=== PATIENT | male | born 1970 | race Caucasian/White ===

== ENCOUNTER 2020-05-14 00:06 | Inpatient (IN) | payer MEDICAID, OTHER ==
[~2020-05-14] VITALS: Ht 167.6 cm; Wt 97.3 kg
[2020-05-14] MEDS ORDERED: MORPHINE SULFATE 4 MG/ML SYR/VIAL ONE (00:22)
[2020-05-14] MEDS ORDERED: MORPHINE SULFATE 4 MG/ML SYR/VIAL IV ONE (00:30)
[2020-05-14 00:41] LABS: Basophils # (auto) 0.1 10 ^3/uL (0-0.2); Basophils % (auto) 0.4 % (0.0-2.0); Eosinophils # (auto) 0 10 ^3/uL (0-0.8); Eosinophils % (auto) 0.1 % (0.0-7.0); Hematocrit 35.8 % (41.0-53.0); Hemoglobin 12.3 g/dL (13.5-17.5); Lymphocytes % (auto) 11.9 % (10.0-50.0); Mean Corpuscular Hemoglobin 31.6 pg (28.0-32.0); Mean Corpuscular Hgb Conc. 34.3 g/dL (32.0-36.0); Monocytes % (auto) 11.9 % (0.0-12.0); Neutrophils # (auto) 12.5 10 ^3/uL (1.6-8.6); Neutrophils % (auto) 75.7 % (37.0-80.0); Platelet Count (auto) 317 10^3/uL (140-450); Red Blood Cells 3.89 10^6/uL (4.5-5.90); Red Cell Distribution Width 12.6 % (11.8-14.3); White Blood Cell 16.6 10^3/uL (4.4-10.8)
[2020-05-14 00:58] LABS: INR 1.07 (0.9-1.15); Partial Thromboplastin Time 29.6 sec (23.0-31.2)
[2020-05-14 01:00] LABS: Albumin 2.9 g/dL (3.4-5.0); Calcium 8.5 mg/dL (8.5-10.1); Potassium 3.9 mmol/L (3.5-5.1)
[2020-05-14 01:07] LABS: BUN/Creatinine Ratio 9.9; Bilirubin, Total 1.3 mg/dL (0.2-1.0); Total Protein 7.3 g/dL (6.4-8.2)
[2020-05-14] MEDS ORDERED: IOHEXOL 350 MG/ML 100ML IJ ONE (02:50)
[2020-05-14] MEDS ORDERED: DexAMETHasone SOD PHOS 10MG/1ML VIAL INJ IV ONE (04:45)
[2020-05-14] MEDS ORDERED: DOXYCYCLINE 100MG/250ML 250 ML IV ONE (04:45)
[2020-05-14] MEDS ORDERED: ZOLPIDEM TARTRATE 5 MG TAB PO PRN (06:45)
[2020-05-14] MEDS ORDERED: DEXTROSE (50%) 50ML SYRG IV PRN ×2 (06:45→14:00)
[2020-05-14] MEDS ORDERED: NITROGLYCERIN 0.4 MG SL TAB SL PRN (06:45)
[2020-05-14] MEDS: ACCU-CHEK COMFORT CURVE STRIP VI SCH ×4 (08:00→23:53)
[2020-05-14] MEDS: InsuLIN REG 1unit/0.01ml Soln (100units/ml) SC SCH ×3 (08:24→18:20)
[2020-05-14] MEDS: ASPirin 81 mg TAB PO SCH (08:39)
[2020-05-14] MEDS: DOCUSATE SOD 100 MG CAP PO SCH (08:39)
[2020-05-14] MEDS: ENOXAPARIN SOD 100 MG/1 ML SYRINGE SC SCH ×2 (08:47→22:28)
[2020-05-14] MEDS: ATORVASTATIN 20 MG TAB PO SCH (08:47)
[2020-05-14] MEDS ORDERED: LISINOPRIL 10 MG TAB PO SCH (10:00)
[2020-05-14] MEDS ORDERED: FUROSEMIDE 40 MG/4 ML VIAL IV SCH (10:00)
[2020-05-14] MEDS ORDERED: CLOPIDOGREL BISULFATE 75 MG TAB PO SCH (10:00)
[2020-05-14] MEDS ORDERED: CARVEDILOL 3.125 MG TAB PO SCH (10:00)
[2020-05-14] MEDS ORDERED: INSULIN LANTUS (GLARGINE) 1 /0.01ml (100units/ml) SC ONE (13:30)
[2020-05-14] MEDS ORDERED: LORazepam 2MG/ML-1ML VIAL IV PRN (14:00)
[2020-05-14] MEDS: FUROSEMIDE 40 MG/4 ML VIAL IV SCH ×2 (14:00→18:21)
[2020-05-14] MEDS: CARVEDILOL 3.125 MG TAB PO SCH ×2 (14:15→22:28)
[2020-05-14] MEDS: LISINOPRIL 5 MG TAB PO SCH (14:15)
[2020-05-14] MEDS: DOXYCYCLINE 100MG/250ML 250 ML IV SCH (16:35)
[2020-05-14 17:00] VITALS: BP 128/76
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
--- NOTE | 2020-05-14 18:57 | NUR ---
MRSA SWAB SENT TO LAB
--- NOTE | 2020-05-14 18:57 | NUR ---
IV TO RIGHT FA PATIENT STATED IV IS HURTING EVERY SINCE HE RECEIVED ANTIBIOTICS. IV FLUSHED WELL, NO REDNESS, NON TENDER TO THE TOUCH. ICE PACK PROVIDED FOR COMFORT. WILL CONTINUE TO MONITOR.
--- NOTE | 2020-05-14 19:45 | NUR ---
Opening Shift Note Assumed care of patient, awake and alert. A&Ox4. Patient sleeping in bed. No S/S of distress/SOB or pain. Safety measures maintained by keeping the bed locked in lowest position, personal items and call light within reach. Instructed on POC and to call for assist PRN, will continue to monitor for changes Q1hr and PRN.
[2020-05-14 22:44] VITALS: BP 125/74
[2020-05-15] MEDS: InsuLIN REG 1unit/0.01ml Soln (100units/ml) SC SCH ×5 (00:03→22:54)
[2020-05-15 05:21] VITALS: BP 130/66
[2020-05-15] MEDS: DOXYCYCLINE 100MG/250ML 250 ML IV SCH ×2 (05:26→17:00)
[2020-05-15] MEDS: ACCU-CHEK COMFORT CURVE STRIP VI SCH ×4 (06:42→22:48)
[2020-05-15] MEDS: FUROSEMIDE 40 MG/4 ML VIAL IV SCH (06:44)
[2020-05-15 09:00] VITALS: BP 111/59
[2020-05-15] MEDS: DOCUSATE SOD 100 MG CAP PO SCH (09:48)
[2020-05-15] MEDS: ASPirin 81 mg TAB PO SCH (09:48)
[2020-05-15] MEDS: LISINOPRIL 5 MG TAB PO SCH (09:49)
[2020-05-15] MEDS: ENOXAPARIN SOD 100 MG/1 ML SYRINGE SC SCH ×2 (09:49→22:48)
[2020-05-15] MEDS: CARVEDILOL 3.125 MG TAB PO SCH ×2 (09:49→22:00)
[2020-05-15 10:25] LABS: Basophils # (auto) 0 10 ^3/uL (0-0.2); Basophils % (auto) 0.3 % (0.0-2.0); Eosinophils # (auto) 0 10 ^3/uL (0-0.8); Eosinophils % (auto) 0.2 % (0.0-7.0); Hematocrit 34.9 % (41.0-53.0); Lymphocytes # (auto) 1.8 10 ^3/uL (0.4-5.4); Lymphocytes % (auto) 12.6 % (10.0-50.0); Mean Corpuscular Hemoglobin 31.7 pg (28.0-32.0); Mean Corpuscular Hgb Conc. 34.3 g/dL (32.0-36.0); Mean Corpuscular Volume 92.5 fL (80.0-100.0); Monocytes # (auto) 1.6 10 ^3/uL (0-1.3); Neutrophils # (auto) 10.9 10 ^3/uL (1.6-8.6); Neutrophils % (auto) 75.9 % (37.0-80.0); Platelet Count (auto) 336 10^3/uL (140-450); Red Blood Cells 3.77 10^6/uL (4.5-5.90); Red Cell Distribution Width 12.5 % (11.8-14.3); White Blood Cell 14.3 10^3/uL (4.4-10.8)
[2020-05-15 10:41] LABS: Albumin 2.7 g/dL (3.4-5.0); Calcium 8.1 mg/dL (8.5-10.1); Magnesium 1.9 mg/dL (1.6-2.6); Potassium 3.5 mmol/L (3.5-5.1)
[2020-05-15 10:46] LABS: BUN/Creatinine Ratio 15.5; Bilirubin, Total 0.6 mg/dL (0.2-1.0); Phosphorus 3.1 mg/dL (2.5-4.90)
[2020-05-15] MEDS ORDERED: MAGNESIUM SULFATE 1GM/100ML 100 ML IV ONE (12:15)
[2020-05-15] MEDS ORDERED: POTASSIUM CHL 20 Meq TABLET PO ONE (12:15)
[2020-05-15] MEDS ORDERED: DEXTROSE (50%) 50ML SYRG IV PRN (12:15)
[2020-05-15 12:38] LABS: Hepatitis B Surface Antibody Negative
[2020-05-15 12:54] LABS: INR 1.07 (0.9-1.15); Partial Thromboplastin Time 27.3 sec (23.0-31.2)
[2020-05-15 13:00] VITALS: BP 100/62
[2020-05-15 13:17] LABS: Hepatitis A Total Antibody Negative
--- NOTE | 2020-05-15 14:50 | NUR ---
TELE CONSULT CALLED TO [phone] S/W HAYLEE. AWAITING CALL BACK FROM
--- NOTE | 2020-05-15 15:00 | NUR ---
refused medications and new iv patient refused iv medications and po potassium. patient stated "come back tomorrow then I will do it." Patient verbalized throughout the shift he thinks he is "being poisoned by the mafia".Patient is calm, flat affect, denied pain, no SOB. MD is aware of patient complaints. Tele psyc already completed. will contiue to monitor.
--- NOTE | 2020-05-15 15:27 | NUR ---
TELE MED PSYC COMPLETED. AWAITING REPORT FROM
[2020-05-15 15:43] LABS: Hepatitis B Core Total AB Negative
[2020-05-15 15:44] LABS: Hepatitis B Surface Antigen Negative (Negative)
[2020-05-15 15:51] LABS: Hepatitis C Antibody Positive (Negative)
[2020-05-15 17:00] VITALS: BP 122/77
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
--- NOTE | 2020-05-15 17:14 | NUR ---
RELEASE OF MEDICAL RECORDS FAXED TO [facility] A REQUEST FOR MEDICAL RECORDS [phone] PHONE NUMBER [phone]. WILL FOLLOW UP IN THE AM.
--- NOTE | 2020-05-15 17:15 | NUR ---
REFUSED NEW IV PATIENT SCHEDULED FOR STRESS TEST TOMORROW MORNING; PATIENT WILL NEED A SECOND IV, HOWEVER THE PATIENT REFUSED AN IV AT THIS TIME "PLEASE COME BACK TOMORROW AND THEN I WILL LET YOU, MAYBE EVEN TONIGHT." EDUCATED THE PATIENT ON THE IMPORTANCE OF THE STRESS TEST AND THAT WE NEED TO PREPARE AHEAD OF TIME TO ENSURE HIS TEST WILL NOT BE DELAYED, PATIENT STILL REFUSED IV. PATIENT CALM, DENIED PAIN, NO SOB.WILL CONTINUE TO MONITOR.
--- NOTE | 2020-05-15 18:41 | NUR ---
REFUSED INSULIN BLOOD SUGAR 144, PATIENT HAD EATEN DINNER PRIOR AND STATED " MY SUGAR IS FINE ITS UP BECAUSE I JUST ATE NO INSULIN". EDUCATION PROVIDED TO PATIENT.WILL CONTINUE TO MONITOR.
--- NOTE | 2020-05-15 19:22 | NUR ---
ENDORSED CARE TO NIGHT RN; PATIENT DENIED PAIN, NO SOB.
[2020-05-15] MEDS: ACETAMINOPHEN 325 MG TAB PO PRN (20:14)
--- NOTE | 2020-05-15 21:30 | NUR ---
Patient having chest pain Patient VSS. EKG done and walked down to Hospitalist to sign. Repeat Troponin ordered. Dr. Carballo aware. No new orders from Dr. Carballo.
[2020-05-15 22:00] VITALS: BP 128/78
[2020-05-15] MEDS: ATORVASTATIN 20 MG TAB PO SCH (22:47)
[2020-05-15] MEDS: INSULIN LANTUS (GLARGINE) 1 /0.01ml (100units/ml) SC SCH (22:54)
--- NOTE | 2020-05-15 22:55 | NUR ---
[facility] Hospitalist Lab called for Gram Positive Cocci in cluster. Patient is currently on Doxycyline
[2020-05-15] MEDS ORDERED: VANCOMYCIN PER PHARMACY 0 MG IV SCH (23:45)
[2020-05-15] MEDS ORDERED: VANCOMYCIN 1,500 MG in D5W 5% 250 ML IV ONE (23:45)
--- NOTE | 2020-05-16 00:30 | NUR ---
melangeur operator made aware of Vancomycin IV. House Sup paged to obtained medication.
[2020-05-16] MEDS ORDERED: VANCOMYCIN HCL 1000 MG VL ONE (01:42)
[2020-05-16] MEDS ORDERED: VANCOMYCIN HCL 500 MG VL ONE (01:49)
--- NOTE | 2020-05-16 02:00 | NUR ---
Vancomycin given at this time.
[2020-05-16] MEDS: MORPHINE SULF INJ 2 MG/ML SYRINGE 1ML IV PRN (02:55)
[2020-05-16] MEDS: DOXYCYCLINE 100MG/250ML 250 ML IV SCH (04:32)
[2020-05-16 05:00] VITALS: BP 115/68
[2020-05-16 06:24] LABS: Basophils # (auto) 0 10 ^3/uL (0-0.2); Basophils % (auto) 0.3 % (0.0-2.0); Eosinophils # (auto) 0.1 10 ^3/uL (0-0.8); Eosinophils % (auto) 0.8 % (0.0-7.0); Hematocrit 34.4 % (41.0-53.0); Lymphocytes # (auto) 1.9 10 ^3/uL (0.4-5.4); Lymphocytes % (auto) 15.1 % (10.0-50.0); Mean Corpuscular Hgb Conc. 34.8 g/dL (32.0-36.0); Mean Corpuscular Volume 91.8 fL (80.0-100.0); Monocytes # (auto) 1.8 10 ^3/uL (0-1.3); Monocytes % (auto) 14.7 % (0.0-12.0); Neutrophils # (auto) 8.6 10 ^3/uL (1.6-8.6); Neutrophils % (auto) 69.1 % (37.0-80.0); Nucleated Red Blood Cells % 0.1 %; Platelet Count (auto) 337 10^3/uL (140-450); Red Blood Cells 3.75 10^6/uL (4.5-5.90); Red Cell Distribution Width 12.5 % (11.8-14.3); White Blood Cell 12.4 10^3/uL (4.4-10.8)
[2020-05-16] MEDS: ACCU-CHEK COMFORT CURVE STRIP VI SCH ×4 (06:27→22:00)
[2020-05-16] MEDS: InsuLIN REG 1unit/0.01ml Soln (100units/ml) SC SCH ×4 (06:31→22:00)
[2020-05-16 06:39] LABS: Albumin 2.7 g/dL (3.4-5.0); Calcium 8.3 mg/dL (8.5-10.1); Potassium 3.8 mmol/L (3.5-5.1)
[2020-05-16 06:56] LABS: BUN/Creatinine Ratio 21.4; Bilirubin, Total 0.8 mg/dL (0.2-1.0); Total Protein 7.1 g/dL (6.4-8.2)
--- NOTE | 2020-05-16 08:00 | NUR ---
REFUSED ALL TREATMENT UNTIL MD ARRIVES. DENIED, PAIN, NO SOB, FLAT AFFECT. WILL CONTINUE TO MONITOR.
[2020-05-16 09:00] VITALS: BP 111/69
[2020-05-16] MEDS: VANCOMYCIN 1GM/250ML 250 ML IV SCH ×3 (09:00→22:33)
[2020-05-16] MEDS: LISINOPRIL 5 MG TAB PO SCH (10:00)
[2020-05-16] MEDS: ASPirin 81 mg TAB PO SCH (10:00)
[2020-05-16] MEDS ORDERED: FUROSEMIDE 40 MG/4 ML VIAL IV SCH (10:00)
[2020-05-16] MEDS: DOCUSATE SOD 100 MG CAP PO SCH (10:00)
[2020-05-16] MEDS: CARVEDILOL 3.125 MG TAB PO SCH ×2 (10:00→22:00)
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
--- NOTE | 2020-05-16 10:30 | NUR ---
IV removal from right FA not flushing IV DC'd with clean sterile technique, catheter fully intact. Pressure dressing applied to site. Patient tolerated well.
--- NOTE | 2020-05-16 11:20 | NUR ---
FAMILY UPDATED NOTIFIED PATIENTS BROTHER MIGUELINA [phone] PATIENT WILL BE DISCHARGED TODAY.
--- NOTE | 2020-05-16 12:30 | NUR ---
faxed medical records requset to [facility] fax # [phone] phone number [phone].
[2020-05-16 13:00] VITALS: BP 132/67
--- NOTE | 2020-05-16 14:30 | NUR ---
IV insertion IV access obtained, via clean sterile technique by inserting 18 gauge catheter at right AC after attempt 1 . IV secured properly. No trauma to site. Patient tolerated well.
[2020-05-16 16:43] VITALS: BP 125/77
--- NOTE | 2020-05-16 19:22 | NUR ---
ENDORSED CARE TO NIGHT RN. STILL AWAITING FAX FROM [facility] FOR PATIENTS MEDICAL RECORDS.
--- NOTE | 2020-05-16 20:00 | NUR ---
Opening Shift Note Assumed care of patient. Awake, alert and oriented x4. No S/S of distress/SOB or pain. Pt is on room air with even and unlabored respirations. Instructed on POC and to call for assist PRN. Bed locked, in lowest position, call light within reach, side rails up x2. Will continue to monitor for changes Q1hr and PRN.
[2020-05-16 22:00] VITALS: BP 133/70
[2020-05-16] MEDS: INSULIN LANTUS (GLARGINE) 1 /0.01ml (100units/ml) SC SCH (22:00)
[2020-05-16] MEDS: ATORVASTATIN 20 MG TAB PO SCH (22:00)
--- NOTE | 2020-05-16 22:34 | NUR ---
Refused Meds Pt refused 2200 meds but did allow Vancomycin infusion. Pt stated "I'm not taking any meds until they check for mercury poisoning". Educated pt on need for medications, including glucose check. Pt still refusing but said its ok for the antibiotic so his "lungs can heal". Will continue to monitor
[2020-05-17 01:14] LABS: Alcohol, Urine < 3.0 mg/dL (0-10); Amphetamine Screen, Urine NEGATIVE (NEGATIVE); Barbiturate Scree,Urine NEGATIVE (NEGATIVE); Benzodiazephine Screen, Urine NEGATIVE (NEGATIVE); Cannabinoid Screen, Urine NEGATIVE (NEGATIVE); Cocaine Screen, Urine NEGATIVE (NEGATIVE); Opiate Scree,Urine NEGATIVE (NEGATIVE); Phencyclidine Screen, Urine NEGATIVE (NEGATIVE)
[2020-05-17 05:00] VITALS: BP 140/84
[2020-05-17] MEDS: VANCOMYCIN 1GM/250ML 250 ML IV SCH (06:13)
[2020-05-17] MEDS: InsuLIN REG 1unit/0.01ml Soln (100units/ml) SC SCH ×4 (06:13→22:00)
[2020-05-17] MEDS: ACCU-CHEK COMFORT CURVE STRIP VI SCH ×4 (06:13→22:00)
--- NOTE | 2020-05-17 06:14 | NUR ---
Refused meds Pt allowed Vancomycin infusion. Educated pt on need to check blood glucose level. Pt stated "why should you care what my blood sugar level is if you won't check me for mercury poisoning?....I'm not having you check until I get checked for mercury".
[2020-05-17 06:20] LABS: Basophils # (auto) 0 10 ^3/uL (0-0.2); Basophils % (auto) 0.4 % (0.0-2.0); Eosinophils # (auto) 0.1 10 ^3/uL (0-0.8); Eosinophils % (auto) 0.6 % (0.0-7.0); Hematocrit 34.3 % (41.0-53.0); Lymphocytes % (auto) 19.4 % (10.0-50.0); Mean Corpuscular Hemoglobin 31.9 pg (28.0-32.0); Mean Corpuscular Volume 91.1 fL (80.0-100.0); Monocytes # (auto) 1.4 10 ^3/uL (0-1.3); Monocytes % (auto) 13.8 % (0.0-12.0); Neutrophils # (auto) 6.9 10 ^3/uL (1.6-8.6); Neutrophils % (auto) 65.8 % (37.0-80.0); Platelet Count (auto) 339 10^3/uL (140-450); Red Blood Cells 3.77 10^6/uL (4.5-5.90); Red Cell Distribution Width 12.9 % (11.8-14.3); White Blood Cell 10.4 10^3/uL (4.4-10.8)
[2020-05-17 06:40] LABS: Albumin 2.9 g/dL (3.4-5.0); Calcium 8.5 mg/dL (8.5-10.1); Potassium 3.8 mmol/L (3.5-5.1)
[2020-05-17 06:42] LABS: BUN/Creatinine Ratio 15.7
[2020-05-17 06:47] LABS: Bilirubin, Total 0.9 mg/dL (0.2-1.0); Total Protein 7.4 g/dL (6.4-8.2)
[2020-05-17 09:02] VITALS: BP 157/78
[2020-05-17] MEDS: CARVEDILOL 3.125 MG TAB PO SCH ×2 (09:21→22:00)
[2020-05-17] MEDS: DOCUSATE SOD 100 MG CAP PO SCH (09:21)
[2020-05-17] MEDS: LISINOPRIL 5 MG TAB PO SCH (09:21)
[2020-05-17] MEDS: ENOXAPARIN SOD 100 MG/1 ML SYRINGE SC SCH (09:23)
[2020-05-17] MEDS: ASPirin 81 mg TAB PO SCH (09:41)
--- NOTE | 2020-05-17 10:04 | NUR ---
Called [facility] [phone] regarding med record, spoke to Henrietta stated will release anytime today.
--- NOTE | 2020-05-17 10:59 | NUR ---
Tele psy request submitted , ID # [id number]. Will continue to follow up.
--- NOTE | 2020-05-17 11:19 | NUR ---
assessment Patient is a 50 year old male who is alert and oriented. Prior to admission patient lived home alone and functioned independently. Patient informed me he is able to care for his own ADLs. Per patient he will return home to his prior living arrangements post discharge and has transport home. Patient has no insurance. Patient has been assessed by Sagar Parekh of [facility]. Patient may qualify for Medi-randell if he brings back all paperwork. I have provided patient with resources for [facility], Dr. Markham, and [facility] urgent care for follow up visits. Patient has no post discharge needs identified at this time. I informed patient he has a right to speak to a social media marketing specialist regarding all care. I informed patient he has a right to participate in any and all discharge planning. Patient does not have a POA and advanced directive. I have offered patient information on POA and advanced directives. I informed the patient the advantages and benefits of having an Advanced Directive. Patient verbalized understanding and agreed to discharge plan. Addendum: 05/17/20 at 1124 by Belinda ARRIAGA Amended: Links added.
--- NOTE | 2020-05-17 11:39 | NUR ---
Called regarding if patient has been assigned to MD. Animal Doctor stated it has been. Awaiting for a call. Will continue to follow up.
[2020-05-17] MEDS ORDERED: levoFLOXacin 250 MG TAB PO ONE (12:15)
--- NOTE | 2020-05-17 12:15 | NUR ---
Tele Psy consult done, awaiting for a report.
[2020-05-17] MEDS ORDERED: CLOPIDOGREL BISULFATE 75 MG TAB PO ONE (12:30)
[2020-05-17 12:33] VITALS: BP 135/75
[2020-05-17] MEDS ORDERED: VANCOMYCIN 1GM/250ML 250 ML IV SCH (14:00)
--- NOTE | 2020-05-17 14:57 | NUR ---
Nutrition Assessment Note Please see attached link for comlpete assessment Est energy needs ABW 81 [id number] kcal (23-25 kcal/kg BW) est protein needs: 81-89g (1-1.1g/kg ABW) Will reassess prn. Addendum: 05/17/20 at [address] Amended: Links added.
--- NOTE | 2020-05-17 16:28 | NUR ---
Called [facility] [phone] regarding med record has not been released yet , spoke to Aditya. Addendum: 05/17/20 at 1639 by ROBYN KEANE RN Per Adiyta still working on it, but will release today. Will check later.
[2020-05-17 16:52] VITALS: BP 127/72
--- NOTE | 2020-05-17 21:00 | NUR ---
Pt refusing VS Educated pt on need to check his VS. Pt still refused. Will continue to monitor
[2020-05-17] MEDS: ATORVASTATIN 20 MG TAB PO SCH (22:00)
[2020-05-17] MEDS: INSULIN LANTUS (GLARGINE) 1 /0.01ml (100units/ml) SC SCH (22:00)
--- NOTE | 2020-05-17 23:14 | NUR ---
Pt refused meds Educated pt on need of meds. Pt still refusing stating "I don't want any more bitter pills". Will continue to monitor
[2020-05-18] MEDS: MORPHINE SULF INJ 2 MG/ML SYRINGE 1ML IV PRN (01:35)
--- NOTE | 2020-05-18 01:40 | NUR ---
Pt reporting chest pain CP 06/16. VS: BP 134/78, P 89, R 20, O2 97%, T 98.5. Chest pain protocol initiated. EKG done. Morphine 2mg given. EKG results same as compared to previous
--- NOTE | 2020-05-18 01:55 | NUR ---
Chest pain reassessment Pt reporting chest pain 3/10. States that the pain is relieved. Will continue to monitor for changes.
[2020-05-18 05:00] VITALS: BP 128/81
[2020-05-18] MEDS: ACCU-CHEK COMFORT CURVE STRIP VI SCH ×4 (06:32→22:00)
[2020-05-18] MEDS: InsuLIN REG 1unit/0.01ml Soln (100units/ml) SC SCH ×4 (06:32→22:00)
--- NOTE | 2020-05-18 06:32 | NUR ---
Pt refused Accu-check Educated pt on need to check BS. Pt stated "I don't want any more bitter pills". Explained to the pt that I'm not giving him any pills but still refused. Will continue to monitor
--- NOTE | 2020-05-18 07:56 | NUR ---
Called Tele psy regarding there is no report, spoke to Isacc will fax it.
--- NOTE | 2020-05-18 08:23 | NUR ---
4TH time of calling [facility] again [phone] regarding med record has not been released yet , Spoke to Ajay stated will re-fax.
[2020-05-18 09:00] VITALS: BP 125/84
[2020-05-18] MEDS: levoFLOXacin 250 MG TAB PO SCH (09:40)
[2020-05-18] MEDS: CARVEDILOL 3.125 MG TAB PO SCH ×2 (09:40→22:00)
[2020-05-18] MEDS: DOCUSATE SOD 100 MG CAP PO SCH (09:40)
[2020-05-18] MEDS: ENOXAPARIN SOD 100 MG/1 ML SYRINGE SC SCH (09:40)
[2020-05-18] MEDS: LISINOPRIL 5 MG TAB PO SCH (09:40)
[2020-05-18] MEDS: CLOPIDOGREL BISULFATE 75 MG TAB PO SCH (09:40)
[2020-05-18] MEDS: ASPirin 81 mg TAB PO SCH (09:45)
--- NOTE | 2020-05-18 10:03 | NUR ---
Per SS consult patient stating he live in his van. Patient stated he is not homeless. Patient likes to travel and stays in hotels. Patient states he lives in [place]. Patient states he will be staying in a hotel upon discharge.
--- NOTE | 2020-05-18 10:26 | NUR ---
5TH time of calling [facility] again [phone] regarding med record has not been released yet , Spoke to Miguel stated will re-fax.
[2020-05-18 13:16] VITALS: BP 161/85
--- NOTE | 2020-05-18 16:45 | NUR ---
Dr. Carballo at bedside discussed with patient regarding patient needs [facility], patient refused a procedure.
[2020-05-18 17:00] VITALS: BP 190/92
--- NOTE | 2020-05-18 17:05 | NUR ---
Informed Dr. Owen regarding patient refused a procedure. Per MD , place patient 51/50 hold and SS consult to transfer to inpatient psy facility. Noted and carried it out.
--- NOTE | 2020-05-18 17:06 | NUR ---
Informed CN-Richie, regarding patient needs hold. CN aware and will have Benedicto shift lab technician nurse come to see patient.
[2020-05-18 22:00] VITALS: BP 137/86
[2020-05-18] MEDS: INSULIN LANTUS (GLARGINE) 1 /0.01ml (100units/ml) SC SCH (22:00)
[2020-05-18] MEDS: ATORVASTATIN 20 MG TAB PO SCH (22:00)
--- NOTE | 2020-05-19 00:10 | NUR ---
SANDIE Henriquez wrote telepsych recommended 5150 hold at this time. Placed in chart.
--- NOTE | 2020-05-19 00:50 | NUR ---
Patient complained of chest pain. EKG was done at this time. It showed sinus rhythm at a rate of [address] elevation.
[2020-05-19] MEDS: MORPHINE SULF INJ 2 MG/ML SYRINGE 1ML IV PRN ×2 (00:55→01:49)
--- NOTE | 2020-05-19 00:55 | NUR ---
Morphine given at this time for chest pain. Will continue to monitor.
--- NOTE | 2020-05-19 01:24 | NUR ---
Patient still complaining chest pain. 1 dose of nitroglycerin was given. Will continue to monitor.
--- NOTE | 2020-05-19 01:35 | NUR ---
Hospitalist paged for persistent chest pain not relieved by medication.
[2020-05-19 01:40] VITALS: BP 148/89
--- NOTE | 2020-05-19 01:49 | NUR ---
2nd dose of morphine given. Will continue to monitor.
--- NOTE | 2020-05-19 02:00 | NUR ---
Order received form Dr. Logan. Addendum: 05/19/20 at 0223 by KRAIG GEORGE RN Ordered 1mg dilaudid every 4 hours and to make sure he is seen by the technical lead.
[2020-05-19] MEDS ORDERED: HYDROmorphone HCL 2 MG/ML VL ONE (02:05)
--- NOTE | 2020-05-19 02:05 | NUR ---
Although current IV site is patent. He stated that he did not want the new medication until i placed a new IV because he believes that the medication is not getting into his vein.
--- NOTE | 2020-05-19 02:10 | NUR ---
IV insertion IV access obtained, via clean sterile technique by inserting 20 gauge catheter at left forearm after 1 attempt. IV secured properly. No trauma to site. Patient tolerated procedure well.
[2020-05-19] MEDS: HYDROmorphone HCL 2 MG/ML VL IV PRN ×4 (02:22→19:54)
--- NOTE | 2020-05-19 03:08 | NUR ---
Patient pulled out left forearm IV. Catheter tip was still intact. Wrapped patient with gauze and secured.
[2020-05-19 05:00] VITALS: BP 152/91
[2020-05-19] MEDS: ONDANSETRON HCL 4 MG/2 ML VIAL IV PRN ×3 (05:50→21:57)
[2020-05-19] MEDS: ACCU-CHEK COMFORT CURVE STRIP VI SCH ×4 (06:44→21:19)
[2020-05-19] MEDS: InsuLIN REG 1unit/0.01ml Soln (100units/ml) SC SCH ×4 (06:44→21:30)
--- NOTE | 2020-05-19 08:00 | NUR ---
OPENING SHIFT NOTE: PATIENT RESTING IN BED, A/OX4. PATIENT PASSIVE IN BEHAVIOR. UPDATED ON PLAN OF CARE. CALL LIGHT WITHIN REACH. SITTER AT BEDSIDE. WILL CONTINUE TO MONITOR.
[2020-05-19 09:00] VITALS: BP 117/71
[2020-05-19] MEDS: DOCUSATE SOD 100 MG CAP PO SCH (10:00)
[2020-05-19] MEDS: LISINOPRIL 5 MG TAB PO SCH (10:00)
[2020-05-19] MEDS: ENOXAPARIN SOD 100 MG/1 ML SYRINGE SC SCH (10:00)
[2020-05-19] MEDS: levoFLOXacin 250 MG TAB PO SCH (10:00)
[2020-05-19] MEDS: CLOPIDOGREL BISULFATE 75 MG TAB PO SCH (10:15)
[2020-05-19] MEDS: CARVEDILOL 3.125 MG TAB PO SCH ×2 (10:15→21:31)
[2020-05-19] MEDS: ASPirin 81 mg TAB PO SCH (10:16)
--- NOTE | 2020-05-19 10:16 | NUR ---
MD BAL ROUNDING: UPDATED ON PLAN OF CARE. PATIENT AGREES TO STRESS TEST THURSDAY.
[2020-05-19 13:00] VITALS: BP 117/75
[2020-05-19 17:30] VITALS: BP 117/69
--- NOTE | 2020-05-19 19:04 | NUR ---
CARE ENDORSED TO NOC RN.
--- NOTE | 2020-05-19 19:10 | NUR ---
Openning note Assumed care of patient. Patient is alert and orientated x4. No sob or distress noted at this time. Patient states he has some pain. Bed is locked in lowest position. Side rails up x2. Sitter at bedside. POC reviewed. Patient verbalized understanding. Will continue to monitor q1hr and PRN.
--- NOTE | 2020-05-19 19:54 | NUR ---
Pain Patient sates pain 04/16. Medicates per md orders. Will continue to monitor and reassess.
[2020-05-19] MEDS: ATORVASTATIN 20 MG TAB PO SCH (21:15)
[2020-05-19] MEDS: INSULIN LANTUS (GLARGINE) 1 /0.01ml (100units/ml) SC SCH (21:57)
[2020-05-19 22:00] VITALS: BP 123/68
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
[2020-05-20 05:00] VITALS: BP 131/79
[2020-05-20] MEDS: ACCU-CHEK COMFORT CURVE STRIP VI SCH ×4 (06:06→21:15)
[2020-05-20] MEDS: InsuLIN REG 1unit/0.01ml Soln (100units/ml) SC SCH ×4 (06:11→21:25)
--- NOTE | 2020-05-20 06:30 | NUR ---
Ativan given Patient is stating that he is feeling like he has a hangover. Gave Ativan per md laguerre for alcohol withdrawal symptoms.
--- NOTE | 2020-05-20 07:29 | NUR ---
Closing note Endorsed care to day shift RN Benton. Patient is resting in bed. no sob or distress noted.
[2020-05-20 09:00] VITALS: BP 127/84
[2020-05-20] MEDS: DOCUSATE SOD 100 MG CAP PO SCH (09:52)
[2020-05-20] MEDS: CARVEDILOL 3.125 MG TAB PO SCH ×2 (09:54→21:15)
[2020-05-20] MEDS: levoFLOXacin 250 MG TAB PO SCH (09:54)
[2020-05-20] MEDS: ASPirin 81 mg TAB PO SCH (09:54)
[2020-05-20] MEDS: LISINOPRIL 5 MG TAB PO SCH (09:55)
[2020-05-20] MEDS: CLOPIDOGREL BISULFATE 75 MG TAB PO SCH (09:55)
[2020-05-20] MEDS: INSULIN LANTUS (GLARGINE) 1 /0.01ml (100units/ml) SC SCH ×2 (09:56→21:18)
[2020-05-20] MEDS: ENOXAPARIN SOD 100 MG/1 ML SYRINGE SC SCH (09:56)
[2020-05-20] MEDS: ACETAMINOPHEN 325 MG TAB PO PRN (11:10)
[2020-05-20 13:00] VITALS: BP 112/68
--- NOTE | 2020-05-20 14:14 | NUR ---
Nutrition Followup Notes Pt wt is 99.4 kg Pt was sleeping when rounded this morning. Pt is with a Cardiac 2gNa diet, appetite is good aeb 100% PO intake x5 meals per RN doc. Pt with 8/10 pain at heart per RN doc Est energy needs ABW 81 [id number] kcal (23-25 kcal/kg BW) Est protein needs: 81-89g (1-1.1g/kg ABW) Will reassess prn. LABS: Gluc 207 H, ALT 69 H, Alk Phos 222 H, Alb 2.9 L, Troponin 0.144 H GI: Pt had 1 BM on 05/18 per RN doc. BS: 22 low risk. Refer to wound assessment report for full details. PES: 1) Altered nutrition related lab values r.t current chronic medical condition aeb hyperglycemia elev a1c 2) Decreased nutrient needs r/t adiposity aeb pt`s high BMI of 35.3 kgm2 Comments 1) refer to OPD dietitian on dc 2) continue current plan of care
[2020-05-20] MEDS ORDERED: LACTULOSE 20Gm/30ML SOLN PO ONE (16:45)
[2020-05-20 17:00] VITALS: BP 135/85
[2020-05-20] MEDS: HYDROmorphone HCL 2 MG/ML VL IV PRN ×2 (17:02→21:10)
[2020-05-20] MEDS: ONDANSETRON HCL 4 MG/2 ML VIAL IV PRN (18:52)
--- NOTE | 2020-05-20 19:12 | NUR ---
IV removal IV DC'd with clean sterile technique, catheter fully intact. Pressure dressing applied to site. Patient tolerated well. NOTE: Saline lock noted to be leaking when flushed IV insertion IV access obtained, via clean sterile technique by inserting gauge 20 catheter to left antecubital after 1 attempt(s). IV secured properly. No trauma to site. Patient tolerated procedure well.
--- NOTE | 2020-05-20 19:25 | NUR ---
Opening note Assumed care of patient, patient is alert and orientated x4. No SOB or distress noted. Bed is locked in lowest position, side rails up x2. Patient is resting in bed. Chest evenly rising. Sitter at bedside. POC reviewed. Patient verbalized understanding. Call light within reach, will continue to monitor.
--- NOTE | 2020-05-20 21:10 | NUR ---
Pain Patient states he has pain in his head 05/17. Will medicate per md orders. Sitter and call light within reach. Will continue to monitor and reassess.
[2020-05-20] MEDS: ATORVASTATIN 20 MG TAB PO SCH (21:15)
[2020-05-20 22:00] VITALS: BP 142/90
--- NOTE | 2020-05-20 22:00 | NUR ---
refusing Lantus Patient is refusing Insulin Lantus. Educated patient on importance of taking his prescribed insulin. Patient verbalized understanding but he still refusing to take his Lantus. He states he will take his regular insulin. Will continue to monitor and give Humalin R Insulin
--- NOTE | 2020-05-21 00:20 | NUR ---
Pain Patient states he has pain 6/10 on his head, no complaints of abdominal pain at this time. patient states it is due to not being able to have bowel movement for 3 days. Medicated patient, he is requesting Tylenol at this time. Call light within reach, Will continue to monitor.
[2020-05-21] MEDS: ACETAMINOPHEN 325 MG TAB PO PRN ×3 (00:34→23:27)
--- NOTE | 2020-05-21 01:35 | NUR ---
Bowel Movement Per patient he just had a bowel movement. It was a moderate hard amount. Patient states his headache went down and he feels more comfortable. Will continue to monitor.
[2020-05-21 05:00] VITALS: BP 136/82
[2020-05-21] MEDS: InsuLIN REG 1unit/0.01ml Soln (100units/ml) SC SCH ×5 (06:24→22:00)
[2020-05-21] MEDS: ACCU-CHEK COMFORT CURVE STRIP VI SCH ×4 (06:26→20:00)
--- NOTE | 2020-05-21 07:15 | NUR ---
Closing note Endorsed care to day shift RN no sob or distress noted.
[2020-05-21] MEDS ORDERED: ADENOSINE 82 MG in GIVE UN-DILUTED 0 ML IV STA (08:08)
--- NOTE | 2020-05-21 08:15 | NUR ---
IV insertion IV access obtained, via clean sterile technique by inserting 22 gauge catheter at RIGHT ANTECUBITAL after 1 attempt. IV secured properly. No trauma to site. Patient tolerated procedure well.
[2020-05-21 08:41] VITALS: BP 148/99
--- NOTE | 2020-05-21 09:40 | NUR ---
Patient to [facility] for cardiolite stress test per w/c in a stable condition. patient had been NPO since after midnight for the procedure.
[2020-05-21 09:55] VITALS: BP 136/83
[2020-05-21] MEDS: INSULIN LANTUS (GLARGINE) 1 /0.01ml (100units/ml) SC SCH ×2 (10:00→22:00)
[2020-05-21] MEDS: LISINOPRIL 5 MG TAB PO SCH (10:00)
[2020-05-21] MEDS: ENOXAPARIN SOD 40 MG/0.4 ML SYRINGE SC SCH (10:00)
[2020-05-21] MEDS: CLOPIDOGREL BISULFATE 75 MG TAB PO SCH (10:00)
[2020-05-21] MEDS: levoFLOXacin 250 MG TAB PO SCH (10:00)
[2020-05-21] MEDS: CARVEDILOL 3.125 MG TAB PO SCH ×2 (10:00→22:00)
[2020-05-21] MEDS: LACTULOSE 20Gm/30ML SOLN PO SCH (10:49)
[2020-05-21] MEDS: ASPirin 81 mg TAB PO SCH (10:49)
[2020-05-21] MEDS: DOCUSATE SOD 100 MG CAP PO SCH (10:49)
--- NOTE | 2020-05-21 10:57 | NUR ---
PATIENT RETURNED FROM STRESS TEST IN A STABLE CONDITION.
[2020-05-21] MEDS ORDERED: IBUPROFEN 600 MG TAB PO ONE (11:15)
[2020-05-21 13:00] VITALS: BP 149/74
[2020-05-21] MEDS ORDERED: DEXTROSE (50%) 50ML SYRG IV PRN (13:30)
[2020-05-21 16:38] VITALS: BP 136/87
--- NOTE | 2020-05-21 20:00 | NUR ---
Opening Shift Note Assumed care of patient. Awake, alert and oriented x4. No S/S of distress/SOB or pain at this time. Pt is on room air with even and unlabored respirations. Sitter is at bedside. Instructed on POC and to call for assist PRN. Bed locked, in lowest position, call light within reach, side rails up x2. Will continue to monitor for changes Q1hr and PRN.
[2020-05-21 22:00] VITALS: BP 154/87
[2020-05-21] MEDS: ATORVASTATIN 20 MG TAB PO SCH (22:00)
[2020-05-21] MEDS: HYDROcodone-ACET 5/325MG TAB PO PRN (22:37)
--- NOTE | 2020-05-21 22:40 | NUR ---
Pain Pt reporting pain on left side of head /. Medicated with [place] as ordered. Will continue to monitor
--- NOTE | 2020-05-21 23:30 | NUR ---
Pain reassessment Pt saying "I'm still having a little pain" Reported 02/14. Pt stated he wanted a Tylenol. Gave Tylenol as ordered. Will continue to monitor
--- NOTE | 2020-05-22 01:00 | NUR ---
Pain reassessment Pt is now reporting pain 04/16 stating it's a throbbing headache. Will medicate with dilaudid for 04/16 pain
[2020-05-22] MEDS: InsuLIN REG 1unit/0.01ml Soln (100units/ml) SC SCH ×4 (01:11→12:00)
[2020-05-22] MEDS: HYDROmorphone HCL 2 MG/ML VL IV PRN (01:12)
--- NOTE | 2020-05-22 01:50 | NUR ---
Pain Pt reporting "no pain" 0/10. States he feels comfortable. Will continue to monitor
[2020-05-22] MEDS: ACCU-CHEK COMFORT CURVE STRIP VI SCH ×4 (04:00→12:00)
[2020-05-22] MEDS: ONDANSETRON HCL 4 MG/2 ML VIAL IV PRN (04:06)
[2020-05-22 05:00] VITALS: BP 153/94
--- NOTE | 2020-05-22 08:00 | NUR ---
Opening Shift Note Assumed care of patient, asleep but easily aroused. No S/S of distress/SOB or pain. Will follow up with instructions on POC and to call for assist PRN once fully awake. Will continue to monitor for changes Q1hr and PRN.
[2020-05-22] MEDS: HYDROcodone-ACET 5/325MG TAB PO PRN (08:37)
[2020-05-22 09:03] VITALS: BP 148/99
[2020-05-22] MEDS: CARVEDILOL 3.125 MG TAB PO SCH (09:28)
[2020-05-22] MEDS: ASPirin 81 mg TAB PO SCH (09:28)
[2020-05-22] MEDS: LISINOPRIL 5 MG TAB PO SCH (09:29)
[2020-05-22] MEDS: levoFLOXacin 250 MG TAB PO SCH (09:29)
[2020-05-22] MEDS: CLOPIDOGREL BISULFATE 75 MG TAB PO SCH (09:31)
[2020-05-22] MEDS: INSULIN LANTUS (GLARGINE) 1 /0.01ml (100units/ml) SC SCH (09:32)
[2020-05-22] MEDS: ENOXAPARIN SOD 40 MG/0.4 ML SYRINGE SC SCH (09:32)
[2020-05-22] MEDS: LACTULOSE 20Gm/30ML SOLN PO SCH (09:32)
[2020-05-22] MEDS: DOCUSATE SOD 100 MG CAP PO SCH (09:32)
--- NOTE | 2020-05-22 10:00 | NUR ---
AM Medications Patient refusing medications, after explanation of the purpose and how they work, patient agreed to take aspirin, antibiotics, and blood pressure medications. He refused Plavix and other medications. Will continue to follow up.
--- NOTE | 2020-05-22 10:45 | NUR ---
Hospitalist Rounded Dr. Owen at bedside. Patient refused to have left heart cath, states nothing is wrong with his heart, he is just having headache. Patient also refused to take his Plavix, states that it caused his heart attack.
[2020-05-22] MEDS ORDERED: KETOROLAC TROMETH 30 MG/ML 1ML VIAL IV PRN (11:15)
[2020-05-22] MEDS ORDERED: CLOP75TA28 PO (11:21)
[2020-05-22] MEDS ORDERED: METF-372 PO (11:21)
[2020-05-22] MEDS ORDERED: ATO40T PO (11:21)
[2020-05-22] MEDS ORDERED: LISI-275 PO (11:21)
[2020-05-22] MEDS ORDERED: CAR3125T PO (11:21)
[2020-05-22] MEDS ORDERED: LEVO750T8 PO (11:22)
[2020-05-22] MEDS ORDERED: ASPI-378 PO (11:22)
[2020-05-22] MEDS ORDERED: INSLANTI SC (11:22)
[2020-05-22] MEDS ORDERED: PANT40TA2 PO (11:22)
--- NOTE | 2020-05-22 12:00 | NUR ---
Accu Chek Patient refused Accu Chek at this time.
--- NOTE | 2020-05-22 16:00 | NUR ---
[facility] Prescriptions taken to [facility].
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
--- NOTE | 2020-05-22 16:10 | NUR ---
Leaving against medical advice Patient notified me that he wanted to leave the hospital. AMA form given to be signed. IV removed and tele returned to ICU.
--- NOTE | 2020-05-22 16:28 | NUR ---
Hospitalist Dr. Owen notified that the patient is requesting to leave AMA. Activities Therapist to be made aware and Tristian.
--- NOTE | 2020-05-22 17:08 | NUR ---
AMA Patient ambulated off unit against medical advice. Patient states the he is not staying and he did not want the medications that are being processed at [facility]. Patient verbalized that he has other stuff to take. He also did not want lab request paper. Tristian will be notified.
--- NOTE | 2020-05-22 17:14 | NUR ---
Tristian Called [phone] and spoke with Nita regarding patient's AMA although 5150 hold. Reference number received [id number].
[2020-05-22] MEDS ORDERED: metFORMIN HYDROCHLORIDE 500 MG TAB PO SCH (18:00)
== END 2020-05-22 17:10 | disposition left against medical advice (07) | DRG 720 ==
LOC: EDBD 00:06 → ER 00:12 → TELE 00:13 → TELE-WESTW 17:32
PROVIDERS: ADMIT Hospitalist; ATTEND Internal Medicine
DX: A41.9 Sepsis, unspecified organism (principal); I21.4 Non-ST elevation (NSTEMI) myocardial infarction; I50.43 Acute on chronic combined systolic (congestive) and diastolic (congestive) heart failure; J18.9 Pneumonia, unspecified organism; E87.1 Hypo-osmolality and hyponatremia; F20.0 Paranoid schizophrenia; I31.3 Pericardial effusion (noninflammatory); D64.9 Anemia, unspecified; E66.9 Obesity, unspecified; E78.5 Hyperlipidemia, unspecified; E87.6 Hypokalemia; F10.10 Alcohol abuse, uncomplicated; G43.909 Migraine, unspecified, not intractable, without status migrainosus; G89.4 Chronic pain syndrome; I11.0 Hypertensive heart disease with heart failure; I25.10 Atherosclerotic heart disease of native coronary artery without angina pectoris; Z20.828 Contact with and (suspected) exposure to other viral communicable diseases; K70.31 Alcoholic cirrhosis of liver with ascites; Z91.19 Patient's noncompliance with other medical treatment and regimen; Z95.5 Presence of coronary angioplasty implant and graft; Z53.29 Procedure and treatment not carried out because of patient's decision for other reasons; E11.42 Type 2 diabetes mellitus with diabetic polyneuropathy; E11.65 Type 2 diabetes mellitus with hyperglycemia; F41.9 Anxiety disorder, unspecified; Z68.36 Body mass index [BMI] 36.0-36.9, adult; I25.2 Old myocardial infarction
CPT/HCPCS: 36415; 71045; 71275; 78452; 80053; 80061; 80202; 80307; 80320; 82962; 83036; 83735; 83880; 84100; 84443; 84484; 85025; 85379; 85610; 85730; 86704; 86706; 86708; 86803; 87040; 87077; 87081; 87086; 87186; 87340; 87426; 93005; 93017; 93306; G0378; J0153; J1100; J1815; J1885; J2405; J3490; J7060